=== PATIENT | male | born 1970 ===

== ENCOUNTER 2016-08-27 17:25 | Emergency (ER) | payer OTHER ==
[2016-08-27 17:41] VITALS: BP 134/76; PULSE 72; RESP 20; TEMP 98.6; O2SAT 100
[2016-08-27 19:23] LABS: BASO # 0.1 K/uL (0.0-0.2); BASO % 0.7 % (0.0-2.0); EOS # 0.3 K/uL (0.0-0.7); HEMATOCRIT 43.6 % (35.0-51.0); LYMPH # 2.7 K/uL (1.0-4.3); LYMPH % 31.5 % (20.0-40.0); MEAN CELL VOLUME 90.9 fl (80.0-94.0); MEAN CORPUSCULAR HEMOGLOBIN 31.1 pg (27.0-31.0); MEAN CORPUSCULAR HGB CONC 34.2 g/dL (33.0-37.0); MEAN PLATELET VOLUME 7.9 fl (7.2-11.7); MONO # 0.6 K/uL (0.0-0.8); NEUT # 4.9 K/uL (1.8-7.0); NEUT % 56.8 % (50.0-75.0); RED CELL DISTRIBUTION WIDTH 12.5 % (11.5-14.5); WHITE BLOOD COUNT 8.7 K/uL (4.8-10.8)
[2016-08-27 19:40] LABS: PARTIAL THROMBOPLASTIN TIME 31.9 Seconds (25.6-37.1)
[2016-08-27 19:46] LABS: ALB/GLOB RATIO 1.4 (1.0-2.1); ALKALINE PHOSPHATASE 76 U/L (38-126); ALT/SGPT 68 U/L (21-72); AST/SGOT 36 U/L (17-59); BLOOD UREA NITROGEN 12 mg/dl (9-20); CALCIUM 9.1 mg/dL (8.4-10.2); CARBON DIOXIDE 27 mmol/L (22-30); CHLORIDE 103 mmol/L (98-107); GFR AFRICAN-AMERICAN > 60; GLUCOSE,RANDOM 102 mg/dL (75-110); POTASSIUM 3.8 MMOL/L (3.6-5.0); SODIUM 138 mmol/l (132-148); TOTAL PROTEIN 7.8 G/DL (6.3-8.2)
--- NOTE | 2016-08-27 19:47 | ED PDOC ---
HPI: Abdomen Time Seen by Provider: 08/27/16 18:45 Chief Complaint (Nursing): Male Genitourinary Chief Complaint (Provider): abdominal pain History Per: Patient History/Exam Limitations: no limitations Current Symptoms Are (Timing): Intermittent Episodes Associated Symptoms: denies: Fever, Chills, Nausea, Vomiting, Diarrhea, Loss Of Appetite, Back Pain, Chest Pain, Constipation, Urinary Symptoms Additional Complaint(s): 45yo M in ED for eval of [id number] bleeding x 2-3days without hx of rectal bleeding, GI bleeding or vomiting blood. denies alcohol abuse. states he noted pain after BM, but never had issues with constipation. pt denies pain in rectal area, abd pain, back pain. denies urinary issues. pt states blood is bright red and today was noting leakage of red blood while at work prompting his ED visit. he does have a PMD appy next week. Past Medical History Reviewed: Historical Data, Nursing Documentation, Vital Signs Vital Signs: Last Vital Signs Temp 98.6 F 08/27/16 17:39 Pulse 72 08/27/16 17:39 Resp 20 08/27/16 17:39 BP 134/76 08/27/16 17:39 Pulse Ox 100 08/27/16 22:15 - Medical History PMH: No Chronic Diseases - Family History Family History: States: No Known Family Hx - Home Medications Home Medications: Ambulatory Orders Medication Instructions Recorded Ciprofloxacin HCl [Cipro] 500 mg PO BID #14 tab 08/27/16 metroNIDAZOLE [Flagyl] 500 mg PO BID #14 tab 08/27/16 - Allergies Allergies/Adverse Reactions: Allergies Allergy/AdvReac Type Severity Reaction Status Date / Time No Known Allergies Allergy Verified 08/27/16 17:38 Review of Systems ROS Statement: Except As Marked, All Systems Reviewed And Found Negative Constitutional: Negative for: Fever, Chills Gastrointestinal: Positive for: Hematemesis. Negative for: Nausea, Vomiting, Abdominal Pain, Diarrhea, Constipation, Melena, Hematochezia, Rectal Pain Physical Exam - Reviewed Nursing Documentation Reviewed: Yes Vital Signs Reviewed: Yes - Physical Exam Appears: Positive for: Well, Non-toxic, No Acute Distress Head Exam: Positive for: ATRAUMATIC, NORMAL INSPECTION, NORMOCEPHALIC Skin: Positive for: Normal Color, Warm, DRY Cardiovascular/Chest: Positive for: Regular Rate, Rhythm Respiratory: Positive for: CNT, Normal Breath Sounds Gastrointestinal/Abdominal: Positive for: Normal Exam, Bowel Sounds, Soft. Negative for: Tenderness Back: Positive for: Normal Inspection Rectal: Positive for: Normal Exam, Rectal Tone Is: (intact), Stool Is Heme: ( positive), Hemorrhoids. Negative for: Mass, Tenderness Extremity: Positive for: Normal ROM Neurologic/Psych: Positive for: Alert, Oriented - Laboratory Results Result Diagrams: 08/27/16 19:05 08/27/16 19:05 - ECG O2 Sat by Pulse Oximetry: 100 - Progress ED Course And Treament: PT will get CT scan, and labs. pt stable in ED. stable VS, well appearing and without active rectal bleeding at this time. Re-evaluation Time: 19:57 Condition: Unchanged (stable, no active rectal bleeding at this time. ) Disposition - Clinical Impression Clinical Impression: Rectal bleed, Proctitis - Patient ED Disposition Is Patient to be Admitted: Transfer of Care Counseled Patient/Family Regarding: Studies Performed, Diagnosis, Need For Followup, Rx Given - Disposition Referrals: [facility] [Outside] Jose M Edwards MD [Staff Provider] - Disposition: Routine/Home Disposition Time: 10:23 Condition: STABLE Prescriptions: Ciprofloxacin HCl [Cipro] 500 mg PO BID #14 tab metroNIDAZOLE [Flagyl] 500 mg PO BID #14 tab Instructions: Rectal Bleeding (ED), Proctitis (ED) Forms: [employer] (Uzbek), [facility] ED School/Work Excuse Print Language: ITALIAN
--- NOTE | 2016-08-27 20:57 | ED PDOC ---
- Laboratory Results Result Diagrams: 08/27/16 19:05 08/27/16 19:05 - ECG O2 Sat by Pulse Oximetry: 100 - Progress ED Course And Treament: Signed out to me pending CT results. CT abd/pelvis: IMPRESSION: 1. Apparent thickening of the anorectal region, probably exaggerated by underdistention. Correlate clinically for possible infectious/inflammatory process versus underlying neoplasm not excluded. Correlate clinically. 2. Hepatic steatosis. Mild hepatomegaly. 3. 2.5 cm nodule is noted abutting the skin surface of the left gluteal region. Correlate with sebaceous cyst. Pt. informed of results and instructed to f/u with Dr. Edwards for further evaluation and possible colonoscopy. Cipro IV, flagyl IV given. Case d/w Dr. Herrera and agrees that outpt. care with GI f/u is sufficient along with rx for cipro and flagyl. Disposition - Clinical Impression Clinical Impression: Rectal bleed, Proctitis - POA Present On Arrival: None - Disposition Referrals: Jose M Edwards MD [Staff Provider] - [facility] [Outside] Disposition: Routine/Home Disposition Time: 22:12 Condition: STABLE Prescriptions: Ciprofloxacin HCl [Cipro] 500 mg PO BID #14 tab metroNIDAZOLE [Flagyl] 500 mg PO BID #14 tab Instructions: Rectal Bleeding (ED), Proctitis (ED) Forms: [employer] (Nauruan), [facility] ED School/Work Excuse Print Language: ROMANSH
[2016-08-27] MEDS ORDERED: Sodium Chloride 0.9% 50 ML IV ONE (20:58)
[2016-08-27] MEDS ORDERED: Iohexol 300 100 ML IJ ONE (20:58)
[2016-08-27] MEDS ORDERED: Ciprofloxacin 400mg/200ml D5W 400 MG/200 ML BAG IVPB STA (22:09)
[2016-08-27] MEDS ORDERED: metroNIDAZOLE 500mg/100ml NS 100 ML IVPB STA (22:09)
[2016-08-27] MEDS ORDERED: metroNIDAZOLE 500mg/100ml NS 100 ML IVPB ONE (23:30)
--- NOTE | 2016-08-28 10:18 | CT ---
PROCEDURE: CT Abdomen and Pelvis with intravenous contrast. HISTORY: rectal bleeding COMPARISON: None. TECHNIQUE: Contiguous axial images of the abdomen and pelvis. No oral contrast given. IV contrast given. Coronal and Sagittal reformats generated. Contrast dose: 95 mL. Radiation dose: Total exam DLP = 733.81 mGy-cm. This CT exam was performed using one or more of the following dose reduction techniques: Automated exposure control, adjustment of the mA and/or kV according to patient size, and/or use of iterative reconstruction technique. FINDINGS: LOWER THORAX: Unremarkable. LIVER: Sub centimeter enhancing focus in the left hepatic lobe (series 3, image 15). This could represent a small flash filling hemangioma. However this remains suboptimally seen. GALLBLADDER AND BILE DUCTS: Unremarkable. PANCREAS: Unremarkable. No mass. No ductal dilatation. SPLEEN: Unremarkable. No splenomegaly. ADRENALS: Unremarkable. KIDNEYS AND URETERS: Unremarkable. No stone or hydronephrosis. BLADDER: Grossly unremarkable. REPRODUCTIVE: Unremarkable. APPENDIX: Unremarkable. BOWEL: No obstruction. Apparent thickening of the large bowel wall at the rectal junction could be most likely from underdistention. PERITONEUM: Unremarkable. No fluid collection. No free air. LYMPH NODES: Unremarkable. No enlarged lymph nodes. VASCULATURE: Unremarkable. No aortic aneurysm. BONES: No fracture or destructive lesion. Mild degenerative changes of the spine particularly at L5-S1. OTHER FINDINGS: Oval-shaped soft tissue nodule in the left posterior aspect measuring 2.3 centimeters. IMPRESSION: Sub centimeter hyper enhancing focus in the left hepatic lobe suboptimally evaluated in this current study. Follow-up can be obtained as clinically indicated. Questionable thickening of the anorectal junction could be due to underdistention. Underlying pathology cannot be entirely excluded. If indicated, colonoscopy/sigmoidoscopy can be obtained. Please note that this report is in general agreement with the preliminary report provided by [facility].
== END 2016-08-28 01:02 | disposition home or self-care (01) ==
LOC: H.ER 17:25
DX: K62.5 Hemorrhage of anus and rectum (principal); K62.89 Other specified diseases of anus and rectum